=== PATIENT | female | born 1975 ===

== ENCOUNTER 2018-04-10 13:16 | Outpatient (CLI) | payer BC | END 2018-04-10 13:17 | disposition home or self-care (01) | LOC: BICMAMMO 13:16 | PROVIDERS: ATTEND Internal Medicine | DX: Z12.31 Encounter for screening mammogram for malignant neoplasm of breast (principal); Z80.3 Family history of malignant neoplasm of breast | CPT/HCPCS: 77063; 77067 ==

== ENCOUNTER 2021-07-02 09:16 | Outpatient (CLI) | payer BC ==
[2021-07-02] MEDS ORDERED: Magnevist 469MG/ML 20 ML VIAL ONE (10:31)
== END 2021-07-02 09:17 | disposition home or self-care (01) ==
LOC: BICMRI 09:16
PROVIDERS: ATTEND Physician Assistant
DX: R19.01 Right upper quadrant abdominal swelling, mass and lump (principal); R94.5 Abnormal results of liver function studies
CPT/HCPCS: 74183; A9579